=== PATIENT | female | born 1995 | race Two or more races ===

== ENCOUNTER 2018-10-16 19:01 | Inpatient (IN) | payer SELFPAY ==
[2018-10-16] MEDS ORDERED: SODIUM CHLORIDE 1,000 ML IV STA (19:33)
[2018-10-16 19:37] LABS: EPITHELIAL CELLS MODERATE /hpf
[2018-10-16] MEDS ORDERED: ACETAMINOPHEN 1000 MG/100 ML VIAL (NON FORMULARY) IVPB ONE (19:39)
[2018-10-16] MEDS ORDERED: ACETAMINOPHEN INJECTION 100 ML IVPB ONE (19:54)
[2018-10-16] MEDS ORDERED: morphine CARPU-JECT 2 MG/1 ML DISP.SYRIN IVPUSH ONE (20:28)
[2018-10-16] MEDS ORDERED: morphine SULFATE 4 MG/ML VIAL ONE (20:30)
[2018-10-16] MEDS ORDERED: HYDROmorphone HCL CARPU-JECT 1 MG/1 ML DISP.SYRIN IVPUSH ONE ×3 (21:15→23:06)
[2018-10-16] MEDS ORDERED: HYDROmorphone HCL CARPU-JECT 1 MG/1 ML DISP.SYRIN ONE ×2 (21:29→22:29)
[2018-10-16] MEDS ORDERED: ONDANSETRON 4 MG/2 ML VIAL IVPB ONE (22:24)
[2018-10-16] MEDS ORDERED: ONDANSETRON 4 MG/2 ML VIAL ONE (22:26)
[2018-10-17] MEDS ORDERED: METOCLOPRAMIDE HCL INJECTION 10 MG/2 ML VIAL IVPB ONE (01:47)
[2018-10-17] MEDS ORDERED: METOCLOPRAMIDE HCL INJECTION 10 MG/2 ML VIAL ONE (01:47)
--- NOTE | 2018-10-17 02:48 | PDOC ---
Documentation entered by Avril Reagan SCRIBE, acting as scribe for Yvonne Day MD. Yvonne Day MD: This documentation has been prepared by the Merary silvestre Xhesika, SCRIBE, under my direction and personally reviewed by me in its entirety. I confirm that the documentation accurately reflects all work, treatment, procedures, and medical decision making performed by me. History of Present Illness - General Chief Complaint: Pain Stated Complaint: KIDNEY STONE Time Seen by Provider: 10/16/18 19:10 History Source: Patient Exam Limitations: No Limitations - History of Present Illness Initial Comments: 10/16/18 19:37 The patient is a 23 year old female with a significant PMH of asthma (uses inhaler when needed) and kidney stones who presents to the emergency department with 3 days of R flank pain. The patient states she had 3 kidney stones 1 month ago R>L, was admitted at [facility] (had internal exam, MRI and was started on flomax). Patient states she did not take her 10 day course of pain medication because the medication was sent to the wrong pharmacy. Patient states she is currently endorsing sharp, constant, R flank pain that radiates down her R side and into her R pelvic. Patient states she has associated nausea with no vomiting. Patient notes her last meal was 1hr ago and was able to tolerate the food. Patient notes she took Tylenol at 1pm with mild relief of symptoms. Patient denies any family history of kidney stones. Patient states she is due for her period (LMP 09/03/18). The patient denies chest pain, shortness of breath, headache and dizziness. Denies fever, chills, cough, vomiting, diarrhea and constipation. Denies dysuria , frequency, urgency and hematuria. Allergies: NKDA Past History - Past Medical History Allergies/Adverse Reactions: Allergies Allergy/AdvReac Type Severity Reaction Status Date / Time No Known Allergies Allergy Verified 10/16/18 19:05 Home Medications: Ambulatory Orders Albuterol Sulfate Inhaler - [Ventolin Hfa Inhaler -] 1 - 2 inh PO Q4H PRN Oxycodone HCl/Acetaminophen [Percocet 5-325 mg Tablet] 1 tab PO Q6H PRN #16 tablet MDD 4 tabs 10/17/18 Tamsulosin HCl [Flomax] 0.4 mg PO DAILY #10 cap.er.24h 10/17/18 Asthma: Yes COPD: No Kidney Stones: Yes - Suicide/Smoking/Psychosocial Hx Smoking History: Never smoked Hx Alcohol Use: No Drug/Substance Use Hx: No Review of Systems - Review of Systems Able to Perform ROS?: Yes Comments:: 10/16/18 19:38 GENERAL/CONSTITUTIONAL: No fever or chills. No weakness. HEAD, EYES, EARS, NOSE AND THROAT: No change in vision. No ear pain or discharge. No sore throat. CARDIOVASCULAR: No chest pain or shortness of breath. RESPIRATORY: No cough, wheezing, or hemoptysis. GASTROINTESTINAL: (+) nausea. No vomiting, diarrhea or constipation. GENITOURINARY: No dysuria, frequency, or change in urination. MUSCULOSKELETAL:(+) R flank pain. No joint or muscle swelling or pain. No neck pain. SKIN: No rash NEUROLOGIC: No headache, vertigo, loss of consciousness, or change in strength/ sensation. ENDOCRINE: No increased thirst. No abnormal weight change. HEMATOLOGIC/LYMPHATIC: No anemia, easy bleeding, or history of blood clots. ALLERGIC/IMMUNOLOGIC: No hives or skin allergy. *Physical Exam - Vital Signs Last Vital Signs Temp Pulse Resp BP Pulse Ox 98.4 F 84 16 130/90 99 10/16/18 19:04 10/16/18 19:04 10/16/18 19:04 10/16/18 19:04 10/16/18 19:04 - Physical Exam Comments: 10/16/18 19:38 GENERAL: Awake, alert, and fully oriented, in no acute distress HEAD: No signs of trauma EYES: PERRLA, EOMI, sclera anicteric, conjunctiva clear ENT: Auricles normal inspection, hearing grossly normal, nares patent, oropharynx clear without exudates. (+) dry mucosa NECK: Normal ROM, supple, no lymphadenopathy, JVD, or masses LUNGS: Breath sounds equal, clear to auscultation bilaterally. No wheezes, and no crackles HEART: Regular rate and rhythm, normal S1 and S2, no murmurs, rubs or gallops ABDOMEN: Soft, nontender, normoactive bowel sounds. No guarding, no rebound. No masses. (+) R CVA tenderness. (+) mild R flank tenderness. (+) mild RLQ tenderness. EXTREMITIES: Normal range of motion, no edema. No clubbing or cyanosis. No cords, erythema, or tenderness NEUROLOGICAL: Cranial nerves II through XII grossly intact. Normal speech, normal gait SKIN: Warm, Dry, normal turgor, no rashes or lesions noted. Medical Decision Making - Medical Decision Making 10/17/18 02:22 As noted above, this 23-year-old woman with a history of renal colic and asthma presents with 1 day history of progressive right flank pain. Pain is similar to her previous episode of renal colic 1 month ago that required admission at [facility]. Since there was apparent miscommunication with her pharmacy, she did not take her Flomax or pain medication as prescribed. Today, she had no relief of pain after acetaminophen and presented here. Exam as noted. IV access obtained. Because status was still unclear, patient received 1 g acetaminophen IV. She had minimal relief of her pain and 2 mg of morphine IV given. Urinalysis showed 10-20 red blood cells per high-powered field. PGU was equivocal as per lab results. Gfvze-so-yzhi urine test performed in the emergency room was negative. Quantitative beta hCG was less than 0 Since the patient was not , renal stone protocol CT performed: Mild right-sided hydronephrosis with hydroureter seen due to 3-4 millimeter calculus at the right UV junction. No left ureteral calculus was seen. There are.obstructing punctate intrarenal calculi seen in the right kidney. There is a 1.7 nodule in the right breast, deep central portion. 3 cm left ovarian cyst is seen. No other abnormality seen. Over the next several hours, the patient required multiple doses of IV Dilaudid 0.5 mg X2, then 1 mgX2. She also required Zofran 4 mg IV twice. Despite this, the patient continued to be uncomfortable with residual flank pain as well as multiple episodes of vomiting (semi-digested food). Symptoms worsened when patient was active(i.e., getting out of bed to bathroom, etc.) Reglan 10mg IV given 10/17/18 02:52 Patient vomited twice after IV Reglan administered. She currently has mild persistent nausea. 10/17/18 03:06 Because of persistent vomiting, especially with movement and intermittent persistent pain, observation admission for control of symptoms warranted. Case discussed with ABEL Briceño from [facility] hospitalist service. Patient will be admitted to 's service *DC/Admit/Observation/Transfer Diagnosis at time of Disposition: Renal colic on right side - Discharge Dispostion Condition at time of disposition: Stable Decision to Admit order: Yes - Prescriptions Prescriptions: Oxycodone HCl/Acetaminophen [Percocet 5-325 mg Tablet] 1 tab PO Q6H PRN #16 tablet MDD 4 tabs PRN Reason: Severe Pain Tamsulosin HCl [Flomax] 0.4 mg PO DAILY #10 cap.er.24h - Referrals - Patient Instructions - Post Discharge Activity
[2018-10-17] MEDS ORDERED: ONDANSETRON 4 MG/2 ML VIAL IVPUSH PRN (03:08)
[2018-10-17] MEDS ORDERED: HYDROmorphone HCL CARPU-JECT 1 MG/1 ML DISP.SYRIN IVPUSH PRN (03:08)
[2018-10-17] MEDS ORDERED: METOCLOPRAMIDE HCL INJECTION 10 MG/2 ML VIAL IVPUSH PRN (03:08)
[2018-10-17] MEDS: SODIUM CHLORIDE 0.45% 1,000 ML IV SCH (04:23)
[2018-10-17 06:42] VITALS: BMI 33.5
[2018-10-17] MEDS ORDERED: ALBUTEROL SO4 8 GM HFA INHALER IH PRN (11:10)
--- NOTE | 2018-10-17 11:13 | HP ---
CHIEF COMPLAINT: Right flank and RLQ abdominal pain PCP: None HISTORY OF PRESENT ILLNESS: 23 year-old female with a PMH significant for asthma and recently diagnosed for first time with kidney stones. Patient states she was hospitalized at [facility] in August 2018 for bilateral kidney stones (obstructing?), treated with IV fluids, dilaudid and flomax. She was prescribed flomax on discharge but patient did not fill the prescription. On Wednesday, 10/14 patient developed a cramping abdominal pain on the right side. The pain continued on Wednesday and Wednesday. She took Tylenol which provided temporary relief. On Wednesday evening the pain worsened, she could no longer tolerate, and came to the ED. Patient states she has had urgency and dysuria. She has also had nausea. She denies fever, sweats, chills. Denies vomiting and diarrhea. Denies blood in urine or stool. ER course was notable for: (1) NS x 2L (2) Dilaudid total 3mg; morphine total 2mg; Reglan 10mg x 1 Recent Travel: No PAST MEDICAL HISTORY: Asthma Kidney stones PAST SURGICAL HISTORY: None Social History: lives in [place] mother; works as embedded linux engineer at [employer] Smoking: never Alcohol: social Drugs: no Family History: mother 47 a&w; father 47 a&w with h/o kidney stones; 7 siblings a&w; no children Allergies No Known Allergies Allergy (Verified 10/16/18 19:05) HOME MEDICATIONS: Home Medications Medication Instructions Recorded Albuterol Sulfate Inhaler - 1 - 2 inh PO Q4H PRN 10/16/18 [Ventolin Hfa Inhaler -] Oxycodone HCl/Acetaminophen 1 tab PO Q6H PRN #16 tablet MDD 4 10/17/18 [Percocet 5-325 mg Tablet] tabs Tamsulosin HCl [Flomax] 0.4 mg PO DAILY #10 cap.er.24h 10/17/18 REVIEW OF SYSTEMS CONSTITUTIONAL: Absent: fever, chills, diaphoresis, generalized weakness, malaise, loss of appetite, weight change HEENT: Absent: rhinorrhea, nasal congestion, throat pain, throat swelling, difficulty swallowing, mouth swelling, ear pain, eye pain, visual changes CARDIOVASCULAR: Absent: chest pain, syncope, palpitations, irregular heart rate, lightheadedness , peripheral edema RESPIRATORY: Absent: cough, shortness of breath, dyspnea with exertion, orthopnea, wheezing, stridor, hemoptysis GASTROINTESTINAL: Absent: abdominal pain, abdominal distension, nausea, vomiting, diarrhea, constipation, melena, hematochezia GENITOURINARY: +RLQ abdominal abdominal pain, right flank pain, dysuria, urgency Absent: frequency, hesitancy, hematuria, genital pain MUSCULOSKELETAL: Absent: myalgia, arthralgia, joint swelling, back pain, neck pain SKIN: Absent: rash, itching, pallor HEMATOLOGIC/IMMUNOLOGIC: Absent: easy bleeding, easy bruising, lymphadenopathy, frequent infections ENDOCRINE: Absent: unexplained weight gain, unexplained weight loss, heat intolerance, cold intolerance NEUROLOGIC: Absent: headache, focal weakness or paresthesias, dizziness, unsteady gait, seizure, mental status changes, bladder or bowel incontinence PSYCHIATRIC: Absent: anxiety, depression, suicidal or homicidal ideation, hallucinations. PHYSICAL EXAMINATION Vital Signs - 24 hr 10/16/18 10/17/18 10/17/18 19:04 02:12 04:11 Temperature 98.4 F 98.3 F 98.7 F Pulse Rate 84 59 L Pulse Rate [ 61 Radial] Respiratory 16 16 18 Rate Blood Pressure 130/90 102/59 L Blood Pressure 109/73 [Arm] O2 Sat by Pulse 99 97 97 Oximetry (%) 10/17/18 10/17/18 06:40 10:00 Temperature 98.7 F 98.6 F Pulse Rate 77 81 Pulse Rate [ Radial] Respiratory 18 18 Rate Blood Pressure 102/61 101/67 Blood Pressure [Arm] O2 Sat by Pulse 97 100 Oximetry (%) GENERAL: Awake, alert, and fully oriented, in no acute distress. HEAD: Normal with no signs of trauma. EYES: Pupils equal, round and reactive to light, extraocular movements intact, sclera anicteric, conjunctiva clear. No lid lag. EARS, NOSE, THROAT: Ears normal, nares patent, oropharynx clear without exudates. Moist mucous membranes. NECK: Normal range of motion, supple without lymphadenopathy, JVD, or masses. LUNGS: Breath sounds equal, clear to auscultation bilaterally. No wheezes, and no crackles. No accessory muscle use. HEART: Regular rate and rhythm, normal S1 and S2 without murmur, rub or gallop. ABDOMEN: Soft, RLQ tenderness, not distended, normoactive bowel sounds, no guarding, no rebound tenderness MUSCULOSKELETAL: Normal range of motion at all joints. No bony deformities or tenderness. Mild left CVA tenderness UPPER EXTREMITIES: 2+ pulses, warm, well-perfused. No cyanosis. No clubbing. No peripheral edema. LOWER EXTREMITIES: 2+ pulses, warm, well-perfused. No calf tenderness. No peripheral edema. NEUROLOGICAL: Cranial nerves II-XII intact. Normal speech. Laboratory Results - last 24 hr 10/16/18 10/16/18 10/16/18 19:15 19:15 19:39 Beta HCG, Quant Urine Color Yellow Urine Appearance Clear Urine pH 6.5 Urine Protein Negative Urine Glucose (UA) Negative Urine Ketones Negative Urine Blood 2+ H Urine Nitrite Negative Urine Bilirubin Negative Urine Urobilinogen 0.2 Ur Leukocyte Esterase Negative Urine RBC 10-20 Urine WBC 0-2 Ur Transition Epith Cell Moderate Urine HCG, Qual Borderline hcg level POC Urine HCG, Qual Negative 10/16/18 19:50 Beta HCG, Quant < 1.0 Urine Color Urine Appearance Urine pH Urine Protein Urine Glucose (UA) Urine Ketones Urine Blood Urine Nitrite Urine Bilirubin Urine Urobilinogen Ur Leukocyte Esterase Urine RBC Urine WBC Ur Transition Epith Cell Urine HCG, Qual POC Urine HCG, Qual Imaging 10/16/18 CTAP: (1) 1.7 x 1.0 cm nodular density right breast; (2) multiple punctate right renal stones measuring up to 2-3cm; 3mm right UVJ obstructing stone with mild to moderate proximal hydronephrosis and hydroureter ASSESSMENT/PLAN 23 year-old female with a PMH significant for asthma and recently diagnosed for first time with kidney stones. Admitted for obstructing left ureteral stone, mild left hydro. Obstructing ureteral stone Hydronephrosis Hydroureter --renal function stable --IV fluids --NPO --Toradol for pain --urology consult --strain urine --start Flomax Breast density --1.7 x 1.0cm nodular density right breast --radiology recommends physical exam, US, possible mammography --will speak to Dr. Campos in am Asthma --stable FEN Fluids: 1/2NS@75mL/hr Electrolytes: replete as indicated Nutrition: regular diet; NPO after midnight DVT prophylaxis: TEDs, oob, ambulation; hold chemical prophylaxis for possible surgical intervention Dispo: continues to require inpatient care. Full code. Visit type - Emergency Visit Emergency Visit: Yes ED Registration Date: 10/17/18 Care time: The patient presented to the Emergency Department on the above date and was hospitalized for further evaluation of their emergent condition. - New Patient This patient is new to me today: Yes Date on this admission: 10/17/18 - Critical Care Critical Care patient: No
[2018-10-17 11:44] LABS: BASO % 0.7 % (0-2.0); EOS % 0.4 % (0-4.5); HEMATOCRIT 36.1 % (32.4-45.2); HEMOGLOBIN 11.8 GM/dl (10.7-15.3); LYMPH % 16.6 % (8-40); MCH 27.1 pg (25.7-33.7); MCHC 32.7 g/dl (32.0-36.0); MEAN CELL VOLUME 82.8 fl (80-96); MEAN PLT VOLUME 7.6 fl (7.5-11.1); MONO % 10.2 % (3.8-10.2); NEUT % 72.1 % (42.8-82.8); PLATELET COUNT 314 K/MM3 (134-434); RBC 4.36 M/mm3 (3.60-5.2); RDW 13.3 % (11.6-15.6)
[2018-10-17 11:51] LABS: ALBUMIN 3.3 g/dl (3.4-5.0); CALCIUM 8.2 mg/dl (8.5-10); CREATININE 0.9 mg/dl (0.55-1.3); MAGNESIUM 1.7 mg/dL (1.8-2.4); POTASSIUM 3.6 mmol/L (3.5-5.1); TOT PROT 6.2 g/dl (6.4-8.2)
[2018-10-17] MEDS: KETOROLAC TROMETHAMINE 30 MG/1 ML VIAL IVPUSH PRN ×2 (13:25→21:09)
[2018-10-17] MEDS: TAMSULOSIN HCL 0.4 MG CAP PO SCH (14:32)
[2018-10-17] MEDS ORDERED: MAGNESIUM OXIDE 400 MG TABLET (FP) PO ONE (18:22)
[2018-10-18] MEDS: SODIUM CHLORIDE 0.45% 1,000 ML IV SCH ×2 (03:30→20:09)
[2018-10-18] MEDS: KETOROLAC TROMETHAMINE 30 MG/1 ML VIAL IVPUSH PRN (04:18)
[2018-10-18 07:57] LABS: HEMATOCRIT 36.1 % (32.4-45.2); HEMOGLOBIN 11.8 GM/dl (10.7-15.3); MCH 27.1 pg (25.7-33.7); MCHC 32.7 g/dl (32.0-36.0); MEAN CELL VOLUME 82.8 fl (80-96); MEAN PLT VOLUME 7.7 fl (7.5-11.1); PLATELET COUNT 332 K/MM3 (134-434); RBC 4.36 M/mm3 (3.60-5.2); RDW 13.3 % (11.6-15.6); WHITE BLOOD COUNT 7.3 K/mm3 (4.0-10.8)
[2018-10-18 08:07] LABS: CALCIUM 8.3 mg/dl (8.5-10); CREATININE 0.9 mg/dl (0.55-1.3); MAGNESIUM 2.2 mg/dL (1.8-2.4); PHOSPHOROUS 2.5 mg/dl (2.5-4.9); POTASSIUM 3.8 mmol/L (3.5-5.1)
[2018-10-18] MEDS: TAMSULOSIN HCL 0.4 MG CAP PO SCH (08:37)
--- NOTE | 2018-10-18 12:32 | PN ---
Physical Exam: SUBJECTIVE: Patient seen and examined at bedside. Has not had pain since last evening. OBJECTIVE: Vital Signs Period Temp Pulse Resp BP Sys/Banks Pulse Ox Last 24 Hr 98.1 F-98.6 F 71-79 18-18 100-130/52-78 94-98 GENERAL: Awake, alert, and fully oriented, in no acute distress. LUNGS: Breath sounds equal, clear to auscultation bilaterally. No wheezes, and no crackles. No accessory muscle use. HEART: Regular rate and rhythm, S1 and S2 ABDOMEN: Soft, not tender, not distended MUSCULOSKELETAL: Normal range of motion at all joints. No bony deformities or tenderness. Mild left CVA tenderness UPPER EXTREMITIES: 2+ pulses, warm, well-perfused. No cyanosis. No clubbing. No peripheral edema. LOWER EXTREMITIES: 2+ pulses, warm, well-perfused. No calf tenderness. No peripheral edema. NEUROLOGICAL: Cranial nerves II-XII intact. Normal speech Laboratory Results - last 24 hr 10/18/18 10/18/18 07:16 07:16 WBC 7.3 RBC 4.36 Hgb 11.8 Hct 36.1 MCV 82.8 MCH 27.1 MCHC 32.7 RDW 13.3 Plt Count 332 MPV 7.7 Sodium 139 Potassium 3.8 Chloride 106 Carbon Dioxide 29 Anion Gap 4 L BUN 8.0 Creatinine 0.9 Est GFR (CKD-EPI)AfAm 103.72 Est GFR (CKD-EPI)NonAf 89.49 Random Glucose 94 Calcium 8.3 L Phosphorus 2.5 Magnesium 2.2 Active Medications Generic Name Dose Route Start Last Admin Trade Name Freq PRN Reason Stop Dose Admin Albuterol Sulfate 2 puff 10/17/18 11:10 Ventolin Hfa Inhaler - IH Q4H PRN WHEEZING Sodium Chloride 1,000 mls @ 75 mls/hr 10/17/18 03:15 10/18/18 03:30 1/2 Normal Saline IV 75 mls/hr ASDIR PETR Administration Ketorolac Tromethamine 30 mg 10/17/18 11:12 10/18/18 04:18 Toradol Injection - IVPUSH 10/22/18 11:11 30 mg Q6H PRN Administration PAIN LEVEL 6-10 Metoclopramide HCl 10 mg 10/17/18 03:08 Reglan Injection - IVPUSH Q6H PRN NAUSEA AND/OR VOMITING Ondansetron HCl 4 mg 10/17/18 03:08 10/17/18 13:26 Zofran Injection IVPUSH 4 mg Q6H PRN Administration NAUSEA Tamsulosin HCl 0.4 mg 10/17/18 13:45 10/18/18 08:37 Flomax - PO 0.4 mg DAILY@0830 PETR Administration Imaging 10/16/18 CTAP: (1) 1.7 x 1.0 cm nodular density right breast; (2) multiple punctate right renal stones measuring up to 2-3cm; 3mm right UVJ obstructing stone with mild to moderate proximal hydronephrosis and hydroureter ASSESSMENT/PLAN 23 year-old female with a PMH significant for asthma and recently diagnosed for first time with kidney stones. Admitted for obstructing left ureteral stone. Obstructing ureteral stone Hydronephrosis Hydroureter --renal function stable, pain is improved --IV fluids --Toradol PRN --strain urine --continue Flomax --discussed with urology Dr. Valdovinos, plan is for procedure tomorrow at [facility] density --1.7 x 1.0cm nodular density right breast seen on CT --radiology recommends physical exam, US, possible mammography --will need outpatient followup Asthma --stable FEN Fluids: 1/2NS@75mL/hr Electrolytes: replete as indicated Nutrition: regular diet; NPO after midnight DVT prophylaxis: TEDs, oob, ambulation; hold chemical prophylaxis for procedure tomorrow Dispo: continues to require inpatient care. Full code. Visit type - Emergency Visit Emergency Visit: Yes ED Registration Date: 10/17/18 Care time: The patient presented to the Emergency Department on the above date and was hospitalized for further evaluation of their emergent condition. - New Patient This patient is new to me today: No - Critical Care Critical Care patient: No
--- NOTE | 2018-10-18 20:05 | CON.GU ---
Consult Consult Specialty:: Referred by:: Marin Reason for Consultation:: R UVJ calculus - History of Present Illness Chief Complaint: R flank pain History of Present Illness: 23 year-old female with a PMH significant for asthma and recently diagnosed for first time with kidney stones. Patient states she was hospitalized at [facility] in August 2018 for bilateral kidney stones (obstructing?), treated with IV fluids, dilaudid and flomax. She was prescribed flomax on discharge but patient did not fill the prescription. On Wednesday, 10/14 patient developed a cramping abdominal pain on the right side. The pain continued on Wednesday and Wednesday. She took Tylenol which provided temporary relief. On Wednesday evening the pain worsened, she could no longer tolerate, and came to the ED. Patient states she has had urgency and dysuria. She has also had nausea. She denies fever, sweats, chills. Denies vomiting and diarrhea. Denies blood in urine or stool. Gu cons req ER course was notable for: (1) NS x 2L (2) Dilaudid total 3mg; morphine total 2mg; Reglan 10mg x 1 - Past Medical History ...LMP: 09/03/18 ...: No - Alcohol/Substance Use Hx Alcohol Use: Yes (socialy) - Smoking History Smoking history: Never smoked Have you smoked in the past 12 months: No Home Medications - Allergies Allergies/Adverse Reactions: Allergies Allergy/AdvReac Type Severity Reaction Status Date / Time No Known Allergies Allergy Verified 10/16/18 19:05 - Home Medications Home Medications: Ambulatory Orders Albuterol Sulfate Inhaler - [Ventolin Hfa Inhaler -] 1 - 2 inh PO Q4H PRN Oxycodone HCl/Acetaminophen [Percocet 5-325 mg Tablet] 1 tab PO Q6H PRN #16 tablet MDD 4 tabs 10/17/18 Tamsulosin HCl [Flomax] 0.4 mg PO DAILY #10 cap.er.24h 10/17/18 Physical Exam- Vital Signs: Vital Signs Temperature 98.1 F 10/18/18 14:02 Pulse Rate 67 10/18/18 18:12 Respiratory Rate 19 10/18/18 18:12 Blood Pressure 115/72 10/18/18 18:12 O2 Sat by Pulse Oximetry (%) 95 10/18/18 18:12 Gastrointestinal: Yes: Soft Renal/: Yes: CVA Tenderness - Right Labs: CBC, BMP 10/18/18 07:16 10/18/18 07:16 Imaging - Results Cat Scan: Report Reviewed, Image Reviewed Problem List - Problems (1) Hydronephrosis concurrent with and due to calculi of kidney and ureter Code(s): N13.2 - HYDRONEPHROSIS WITH RENAL AND URETERAL CALCULOUS OBSTRUCTION (2) Ureteral calculus Assessment/Plan: ivfs, analgesia, tamsulosin, RULL JJ stent insertion 10/19 Code(s): N20.1 - CALCULUS OF URETER
[2018-10-19] MEDS: KETOROLAC TROMETHAMINE 30 MG/1 ML VIAL IVPUSH PRN (04:21)
[2018-10-19] MEDS: SODIUM CHLORIDE 0.45% 1,000 ML IV SCH ×2 (04:26→11:57)
--- NOTE | 2018-10-19 07:51 | PN ---
Progress Note, Physician Chief Complaint: Right flank and RLQ abdominal pain History of Present Illness: 23 year-old female with a PMH significant for asthma and recently diagnosed for first time with kidney stones. Patient states she was hospitalized at [facility] in August 2018 for bilateral kidney stones (obstructing?), treated with IV fluids, dilaudid and flomax. She was prescribed flomax on discharge but patient did not fill the prescription. On Wednesday, 10/14 patient developed a cramping abdominal pain on the right side. The pain continued on Wednesday and Wednesday. She took Tylenol which provided temporary relief. On Wednesday evening the pain worsened, she could no longer tolerate, and came to the ED. Patient states she has had urgency and dysuria. She has also had nausea. She denies fever, sweats, chills. Denies vomiting and diarrhea. Denies blood in urine or stool. - Current Medication List Current Medications: Active Medications Albuterol Sulfate (Ventolin Hfa Inhaler -) 2 puff IH Q4H PRN PRN Reason: WHEEZING Sodium Chloride (1/2 Normal Saline) 1,000 mls @ 75 mls/hr IV ASDIR [facility] Last Admin: 10/19/18 04:26 Dose: Not Given Ketorolac Tromethamine (Toradol Injection -) 30 mg IVPUSH Q6H PRN PRN Reason: PAIN LEVEL 6-10 Stop: 10/22/18 11:11 Last Admin: 10/19/18 04:21 Dose: 30 mg Metoclopramide HCl (Reglan Injection -) 10 mg IVPUSH Q6H PRN PRN Reason: NAUSEA AND/OR VOMITING Ondansetron HCl (Zofran Injection) 4 mg IVPUSH Q6H PRN PRN Reason: NAUSEA Last Admin: 10/17/18 13:26 Dose: 4 mg Tamsulosin HCl (Flomax -) 0.4 mg PO DAILY@0830 [facility] Last Admin: 10/18/18 08:37 Dose: 0.4 mg - Objective Vital Signs: Vital Signs Temperature 98.5 F 10/19/18 06:00 Pulse Rate 79 10/19/18 06:00 Respiratory Rate 18 10/19/18 06:00 Blood Pressure 136/84 10/19/18 06:00 O2 Sat by Pulse Oximetry (%) 95 10/18/18 21:00 Constitutional: Yes: Well Nourished, No Distress, Anxious (about procedure) Eyes: Yes: WNL, Conjunctiva Clear, EOM Intact HENT: Yes: WNL, Atraumatic, Normocephalic Neck: Yes: WNL, Supple, Trachea Midline Cardiovascular: Yes: WNL, Regular Rate and Rhythm Respiratory: Yes: WNL, Regular, CTA Bilaterally Gastrointestinal: Yes: WNL, Normal Bowel Sounds, Soft ...Rectal Exam: Yes: Deferred Genitourinary: Yes: CVA Tenderness - Right, Other (right lower quad pain) Breast(s): Yes: WNL Musculoskeletal: Yes: WNL Extremities: Yes: WNL Edema: No Peripheral Pulses WNL: Yes Integumentary: Yes: WNL Neurological: Yes: WNL, Alert, Oriented ...Motor Strength: WNL Psychiatric: Yes: WNL, Alert, Oriented Problem List - Problems (1) Asthma Assessment/Plan: inhaled bronchodilators prn Code(s): J45.909 - UNSPECIFIED ASTHMA, UNCOMPLICATED (2) Prophylactic measure Assessment/Plan: FEN NPO for procedure IVF monitor electrolytes DVT ambulatory Dispo maintain as in patient full code dishcarge planning Code(s): Z29.9 - ENCOUNTER FOR PROPHYLACTIC MEASURES, UNSPECIFIED (3) Hydronephrosis concurrent with and due to calculi of kidney and ureter Assessment/Plan: appreciate consultation by Dr Valdovinos planned for RULL JJ stent insertion pain managment c/w flomax Code(s): N13.2 - HYDRONEPHROSIS WITH RENAL AND URETERAL CALCULOUS OBSTRUCTION (4) Renal colic on right side Assessment/Plan: pain managment Code(s): N23 - UNSPECIFIED RENAL COLIC (5) Ureteral calculus Assessment/Plan: RULL JJ stent insertion 10/19 Code(s): N20.1 - CALCULUS OF URETER Visit type - Emergency Visit Emergency Visit: Yes ED Registration Date: 10/17/18 Care time: The patient presented to the Emergency Department on the above date and was hospitalized for further evaluation of their emergent condition. - New Patient This patient is new to me today: Yes Date on this admission: 10/19/18 - Critical Care Critical Care patient: No - Discharge Referral Referred to [facility] Med [facility] No
[2018-10-19] MEDS: TAMSULOSIN HCL 0.4 MG CAP PO SCH (08:10)
[2018-10-19 08:57] LABS: BASO % 0.8 % (0-2.0); EOS % 2.4 % (0-4.5); HEMATOCRIT 39.4 % (32.4-45.2); HEMOGLOBIN 12.7 GM/dL (10.7-15.3); LYMPH % 26.9 % (8-40); MCH 26.4 pg (25.7-33.7); MCHC 32.2 g/dl (32.0-36.0); MEAN PLT VOLUME 7.3 fl (7.5-11.1); MONO % 9.5 % (3.8-10.2); NEUT % 60.4 % (42.8-82.8); PLATELET COUNT 349 K/MM3 (134-434); RBC 4.81 M/mm3 (3.60-5.2); WHITE BLOOD COUNT 7.2 K/mm3 (4.0-10.0)
[2018-10-19 08:59] LABS: ALBUMIN 3.4 g/dl (3.4-5.0); BILIRUBIN,TOTAL 0.6 mg/dL (0.2-1); BLOOD UREA NITROGEN 8.5 mg/dL (7-18); CREATININE 0.7 mg/dL (0.55-1.3); MAGNESIUM 2.3 mg/dL (1.8-2.4); POTASSIUM 3.7 mmol/L (3.5-5.1)
[2018-10-19 14:49] LABS: INR 1.18 (0.83-1.09)
[2018-10-19 14:52] LABS: ACTIVATED PTT 33.9 SECONDS (25.2-36.5)
[2018-10-19] MEDS ORDERED: MIDAZOLAM HCL 2 MG/2 ML SINGLE DOSE VIAL ONE (16:02)
[2018-10-19] MEDS ORDERED: ceFAZolin SODIUM 1 GM VIAL IVPB ONE (16:20)
--- NOTE | 2018-10-19 16:53 | OP ---
Operative Note - Note: Operative Date: 10/19/18 Pre-Operative Diagnosis: R ureteral calculus Operation: cystoscopy, R ureteroscopy and R JJ stent insertion Findings: passed R ureteral calculus Post-Operative Diagnosis: Same as Pre-op (passed) Surgeon: Kobi Valdovinos Anesthesiologist/DIRECTOR APPAREL: Juliana Scott Anesthesia: General Estimated Blood Loss (mls): 0 Drains & Tubes with Location: 6 fr 24 cm R JJ Operative Report Dictated: Yes
[2018-10-19 17:31] VITALS: BP 125/79
[2018-10-19 17:59] VITALS: PULSE 68; TEMP 98
--- NOTE | 2018-10-19 18:46 | DS ---
Physical Exam: SUBJECTIVE: Patient seen and examined OBJECTIVE: Vital Signs Period Temp Pulse Resp BP Sys/Banks Pulse Ox Last 24 Hr 98 F-98.9 F 61-84 15-19 110-136/65-84 95-99 PHYSICAL EXAM Constitutional: Yes: Well Nourished, No Distress, Anxious (about procedure) Eyes: Yes: WNL, Conjunctiva Clear, EOM Intact HENT: Yes: WNL, Atraumatic, Normocephalic Neck: Yes: WNL, Supple, Trachea Midline Cardiovascular: Yes: WNL, Regular Rate and Rhythm Respiratory: Yes: WNL, Regular, CTA Bilaterally Gastrointestinal: Yes: WNL, Normal Bowel Sounds, Soft ...Rectal Exam: Yes: Deferred Genitourinary: Yes: CVA Tenderness resolved Breast(s): Yes: WNL Musculoskeletal: Yes: WNL Extremities: Yes: WNL Edema: No Peripheral Pulses WNL: Yes Integumentary: Yes: WNL Neurological: Yes: WNL, Alert, Oriented ...Motor Strength: WNL Psychiatric: Yes: WNL, Alert, Oriented LABS Laboratory Results - last 24 hr 10/19/18 10/19/18 10/19/18 07:05 07:05 14:20 WBC 7.2 RBC 4.81 Hgb 12.7 Hct 39.4 MCV 82.0 MCH 26.4 MCHC 32.2 RDW 14.0 Plt Count 349 MPV 7.3 L Absolute Neuts (auto) 4.3 Neutrophils % 60.4 Lymphocytes % 26.9 Monocytes % 9.5 Eosinophils % 2.4 Basophils % 0.8 Nucleated RBC % 0 PT with INR 14.00 H INR 1.18 H PTT (Actin FS) 33.9 Sodium 139 Potassium 3.7 Chloride 103 Carbon Dioxide 28 Anion Gap 8 BUN 8.5 Creatinine 0.7 Est GFR (CKD-EPI)AfAm 140.55 Est GFR (CKD-EPI)NonAf 121.27 Random Glucose 81 Calcium 9.0 Magnesium 2.3 Total Bilirubin 0.6 AST 20 ALT 23 Alkaline Phosphatase 58 Total Protein 7.0 Albumin 3.4 HOSPITAL COURSE: Date of Admission:10/17/18 Date of Discharge: 10/19/18 Problem List - Problems (1) Asthma Assessment/Plan: inhaled bronchodilators prn Code(s): J45.909 - UNSPECIFIED ASTHMA, UNCOMPLICATED (2) Prophylactic measure Assessment/Plan: DVT ambulatory discharge to home Code(s): Z29.9 - ENCOUNTER FOR PROPHYLACTIC MEASURES, UNSPECIFIED (3) Hydronephrosis concurrent with and due to calculi of kidney and ureter Assessment/Plan: RULL JJ stent insertion by Dr Valdovinos. Cleared to go home after procedure pain managment with tylenol c/w flomax Code(s): N13.2 - HYDRONEPHROSIS WITH RENAL AND URETERAL CALCULOUS OBSTRUCTION (4) Renal colic on right side Assessment/Plan: pain managment Code(s): N23 - UNSPECIFIED RENAL COLIC (5) Ureteral calculus Assessment/Plan: RULL JJ stent insertion on 10/19 Code(s): N20.1 - CALCULUS OF URETER Minutes to complete discharge: 30 Discharge Summary Reason For Visit: RENAL COLIC R/SIDE Current Active Problems Asthma (Acute) Hydronephrosis concurrent with and due to calculi of kidney and ureter (Acute) Prophylactic measure (Acute) Renal colic on right side (Acute) Ureteral calculus (Acute) Hospital Course: Problem List - Problems (1) Asthma Assessment/Plan: inhaled bronchodilators prn Code(s): J45.909 - UNSPECIFIED ASTHMA, UNCOMPLICATED (2) Prophylactic measure Assessment/Plan: DVT ambulatory discharge to home Code(s): Z29.9 - ENCOUNTER FOR PROPHYLACTIC MEASURES, UNSPECIFIED (3) Hydronephrosis concurrent with and due to calculi of kidney and ureter Assessment/Plan: RULL JJ stent insertion by Dr Valdovinos. Cleared to go home after procedure pain managment with tylenol c/w flomax Code(s): N13.2 - HYDRONEPHROSIS WITH RENAL AND URETERAL CALCULOUS OBSTRUCTION (4) Renal colic on right side Assessment/Plan: pain managment Code(s): N23 - UNSPECIFIED RENAL COLIC (5) Ureteral calculus Assessment/Plan: RULL JJ stent insertion on 10/19 Code(s): N20.1 - CALCULUS OF URETER Condition: Improved - Instructions Diet, Activity, Other Instructions: You came into the ED and was found to have renal stone. You underwent a right renal stent insertion by Dr Valdovinos. The procedure went well and the stone was removed. You are to call Dr Valdovinos office (number in discharge summary) on Wednesday. Please call tomorrow and make the appointment. You can take tylenol for pain. If you have and fevers or increased pain call Dr Valdovinos office or return to the emergency room. Referrals: Kobi Valdovinos MD [Staff Physician] - 10/24/18 - Home Medications Comprehensive Discharge Medication List: Ambulatory Orders Albuterol Sulfate Inhaler - [Ventolin HFA Inhaler -] 1 - 2 inh PO Q4H PRN Oxycodone HCl/Acetaminophen [Percocet 5-325 mg Tablet] 1 tab PO Q6H PRN #16 tablet MDD 4 tabs 10/17/18 Tamsulosin HCl [Flomax] 0.4 mg PO DAILY #10 cap.er.24h 10/17/18 Tamsulosin HCl [Flomax -] 0.4 mg PO DAILY@0830 cap.er.24h 10/19/18 Problem List - Problems (1) Asthma Code(s): J45.909 - UNSPECIFIED ASTHMA, UNCOMPLICATED (2) Prophylactic measure Code(s): Z29.9 - ENCOUNTER FOR PROPHYLACTIC MEASURES, UNSPECIFIED (3) Hydronephrosis concurrent with and due to calculi of kidney and ureter Code(s): N13.2 - HYDRONEPHROSIS WITH RENAL AND URETERAL CALCULOUS OBSTRUCTION (4) Renal colic on right side Code(s): N23 - UNSPECIFIED RENAL COLIC (5) Ureteral calculus Code(s): N20.1 - CALCULUS OF URETER This patient is new to me today: No Emergency Visit: Yes ED Registration Date: 10/17/18 Care time: The patient presented to the Emergency Department on the above date and was hospitalized for further evaluation of their emergent condition. Critical Care patient: No - Discharge Referral Referred to [facility] No
--- NOTE | 2018-11-22 11:16 | OP ---
DATE OF OPERATION: 10/19/2018 PREOPERATIVE DIAGNOSIS: Right ureteral calculus. POSTOPERATIVE DIAGNOSIS: Right ureteral calculus (passed). PROCEDURE: Cystoscopy, right ureteroscopy, right double J stent insertion. SURGEON: Kobi Valdovinos MD GUM SCORING MACHINE OPERATOR: None. ANESTHESIA: General via laryngeal mask. ANESTHESIOLOGIST: Juliana Scott MD SPECIMENS: None. CULTURES: None. DRAINS: A 6-Nigerian 24-cm right double J stent. ESTIMATED BLOOD LOSS: None. COMPLICATIONS: None. DESCRIPTION OF PROCEDURE: Patient was brought into the operating room. Placed on the operating room table in supine position. After administration of general anesthesia via laryngeal mask, intravenous antibiotics were administered. Sequential compression devices were placed. Patient was placed in the dorsal lithotomy position. Vagina and perineum were prepped and draped in the usual sterile manner. A 22-Nigerian cystoscope was inserted into the bladder with the obturator in place. The obturator was removed. Urine was evacuated, 30-degree telescope was inserted, and cystoscopy was performed. This demonstrated no foreign bodies, tumors, stones, or inflammation. Both ureteral orifices were in their usual location with diminished efflux from the right ureteral orifice. The right ureteral orifice was cannulated with a 0.038 guidewire, which was advanced to the level of the right renal pelvis under fluoroscopic and direct visual guidance. The cystoscope was removed, bladder emptied, and the semirigid ureteroscope was inserted alongside the guidewire to the level of the proximal ureter. No stones were seen. Retrograde pyelogram was done and demonstrated no hydronephrosis, no filling defects. Ureteroscope was removed leaving the guidewire in place. Now a 6-Nigerian 24-cm right double-J stent was inserted over the guidewire under direct visual and fluoroscopic guidance leaving 1 coil in the renal pelvis and 1 coil in the bladder. Bladder was emptied. Cystoscope removed. The stent was secured to the thigh with a suture and a Tegaderm. She tolerated the procedure well, transferred to the recovery room in stable condition. [place] [id number]
== END 2018-10-19 19:53 | disposition home or self-care (01) | DRG 465 ==
LOC: FER 19:01 → FM/S 10-17 03:05 → UNDOADMOB 10-17 03:51 → OBSVTOIN 10-17 06:16 → J5S 10-18 19:03
PROVIDERS: ADMIT Internal Medicine; ATTEND Nurse Practitioner Acute Care
PROC: 0T768DZ Dilation of Right Ureter with Intraluminal Device, Via Natural or Artificial Opening Endoscopic (ICD-10-PCS; principal; 2018-10-19 14:00)
PROC: BT1DYZZ Fluoroscopy of Right Kidney, Ureter and Bladder using Other Contrast (ICD-10-PCS; 2018-10-19 14:00)
DX: N13.2 Hydronephrosis with renal and ureteral calculous obstruction (principal); J45.909 Unspecified asthma, uncomplicated; N23 Unspecified renal colic; N64.9 Disorder of breast, unspecified
CPT/HCPCS: 36415; 74176-TC; 76000-TC-FY; 80048; 80053; 81003; 81015; 81025; 83735; 84100; 84702; 84703; 85025; 85027; 85610; 85730; 94760; 99283-25; G0378; J0131; J7030